=== PATIENT | female | born 1945 | race Caucasian/White ===

== ENCOUNTER 2016-08-30 07:29 | Day surgery (SDC) | payer MEDICARE ==
[2016-08-30] MEDS ORDERED: Lactated Ringers 1,000 ML IV SCH (08:15)
[2016-08-30] MEDS ORDERED: Midazolam 1 MG/ML 2 ML SDV ONE (08:49)
[2016-08-30] MEDS ORDERED: fentaNYL 100 MCG/2 ML SDV ONE (08:49)
[2016-08-30] MEDS ORDERED: Propofol 200 MG/20 ML SDV ONE (08:49)
[2016-08-30 10:16] VITALS: BP 106/65
--- NOTE | 2016-08-31 10:28 | OR ---
DATE OF PROCEDURE: 08/30/2016 PREOPERATIVE DIAGNOSIS: History of colon polyps. POSTOPERATIVE DIAGNOSES: Diverticulosis, history of colon polyps. PROCEDURE PERFORMED: Colonoscopy to the cecum. ANESTHESIA: IV anesthesia with monitored anesthesia care. INDICATIONS: This 71-year-old white female is referred for a colonoscopy because of a history of colon polyps. She says her last colonoscopic exam was done in [place], [place] in 2012. I counseled her for a colonoscopy with possible biopsy and/or polypectomy including risks and alternatives, and she gave her informed consent to proceed. DESCRIPTION OF PROCEDURE: The patient was placed in the left lateral decubitus position. IV anesthesia was administered by the Anesthesia Service. Time-out was held. A rectal exam was performed which was unremarkable. The flexible video Olympus colonoscope was introduced through her anus, up her rectum, and out her colon all way to the cecum. En route, we saw a very few scattered diverticula on the left side. There was no bleeding or inflammation associated with them. Once the cecum was reached, the scope was slowly withdrawn. Examining the mucosa throughout, no additional mucosal abnormalities were noted. The scope was retroflexed in the rectum with the distal rectum appearing unremarkable. The scope was straightened and removed. She tolerated the procedure well. Marco Antonio Beauchamp MD /[id number] MTDDerian
== END 2016-08-30 10:34 | disposition home or self-care (01) ==
LOC: JP.SDS 07:29
PROVIDERS: ATTEND Surgery
DX: Z12.11 Encounter for screening for malignant neoplasm of colon (principal); Z86.010 Personal history of colon polyps; K57.30 Diverticulosis of large intestine without perforation or abscess without bleeding; G43.909 Migraine, unspecified, not intractable, without status migrainosus; Z79.899 Other long term (current) drug therapy
CPT/HCPCS: 45378; J2250; J2704; J3010; J7120

== ENCOUNTER 2017-09-07 04:22 | Emergency (ER) | payer MEDICARE ==
--- NOTE | 2017-09-07 05:02 | EDM.PDOC ---
ED HPI GENERAL MEDICAL PROBLEM - General Chief Complaint: Chest Pain Stated Complaint: CHEST PAIN Time Seen by Provider: 09/07/17 04:45 Source of Information: Reports: Patient, Old Records, RN History Limitations: Reports: No Limitations - History of Present Illness INITIAL COMMENTS - FREE TEXT/NARRATIVE: 72 yo female presents with L anterior chest pain worse with breathing or coughing. She has not had SOB, fever, or cough. Thinks she has had a little L calf muscle soreness and L low back soreness lately also. She and her have been dealing with a dog that has cancer and is dying. They have traveled to the [place] with this dog for chemo tx's. She is a never smoker. She has no hx of any lung issues. Onset Date: 09/05/17 Duration: Day(s):, Constant Location: Reports: Chest (just below the L breast.) Quality: Reports: Dull Severity: Mild Improves with: Reports: Rest Worsens with: Reports: Breathing (or coughing) Context: Reports: Other (unknown, denies injury to area. ) Associated Symptoms: Reports: No Other Symptoms. 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: Neurological History: Reports: Migraines - Infectious Disease History Infectious Disease History: Reports: Chicken Pox, Measles, Mumps, Rubella - Past Surgical History HEENT Surgical History: Reports: Detached Retina, LASIK, Tonsillectomy GI Surgical History: Reports: Colonoscopy, Other (See Below) Neurological Surgical History: Reports: None Social & Family History - Family History Oncologic: Reports: Colon, Lymphoma - Tobacco Use Smoking Status *Q: Never Smoker Second Hand Smoke Exposure: No - Caffeine Use Caffeine Use: Reports: Coffee - Alcohol Use Days Per Week of Alcohol Use: 7 Number of Drinks Per Day: 2 Total Drinks Per Week: 14 - Recreational Drug Use Recreational Drug Use: No ED ROS GENERAL - Review of Systems Review Of Systems: See Below Constitutional: Reports: No Symptoms HEENT: Reports: No Symptoms Respiratory: Reports: Pleuritic Chest Pain. Denies: Shortness of Breath, Wheezing, Cough, Sputum, Hemoptysis Cardiovascular: Reports: Chest Pain (under L breast). Denies: Claudication, Dyspnea on Exertion, Orthopnea, Palpitations GI/Abdominal: Reports: No Symptoms : Reports: No Symptoms Musculoskeletal: Reports: No Symptoms Skin: Reports: No Symptoms Neurological: Reports: No Symptoms ED EXAM, GENERAL - Physical Exam Exam: See Below Exam Limited By: No Limitations General Appearance: Alert, WD/WN, No Apparent Distress Eye Exam: Bilateral Eye: Normal Inspection Ears: Normal External Exam, Normal Canal, Hearing Grossly Normal Ear Exam: Bilateral Ear: Auricle Normal, Canal Normal Nose: Normal Inspection, Normal Mucosa, No Blood Throat/Mouth: Normal Inspection, Normal Lips, Normal Teeth, Normal Oropharynx, Normal Voice, No Airway Compromise Head: Atraumatic, Normocephalic Neck: Normal Inspection, Supple, Non-Tender Respiratory/Chest: No Respiratory Distress, Lungs Clear, Normal Breath Sounds, No Accessory Muscle Use Cardiovascular: Regular Rate, Rhythm, No Edema GI/Abdominal: Normal Bowel Sounds, Soft, Non-Tender, No Distention Back Exam: Normal Inspection. No: CVA Tenderness (R), CVA Tenderness (L) Extremities: Normal Inspection, Normal Range of Motion, Non-Tender, No Pedal Edema Neurological: Alert, Oriented, CN II-XII Intact, Normal Cognition, No Motor/ Sensory Deficits Psychiatric: Normal Affect, Normal Mood Skin Exam: Warm, Dry, Intact, Normal Color, No Rash Course - Vital Signs Text/Narrative:: discussed with Dr. Mcdonald @ [facility] Last Recorded V/S: Last Vital Signs Temp 35.8 C 09/07/17 04:28 Pulse 71 09/07/17 05:45 Resp 12 09/07/17 05:45 BP 116/63 09/07/17 05:45 Pulse Ox 95 09/07/17 05:45 - Orders/Labs/Meds Orders: Active Orders 24 hr Category Date Time Status Ang Chest [CT] Stat Exams 09/07/17 05:47 Taken Chest 2V [CR] Stat Exams 09/07/17 04:55 Taken Lactated Ringers [Ringers, Lactated] 1,000 ml Med 09/07/17 06:00 Active IV ASDIRECTED Medication Orders Lactated Ringer's (Ringers, Lactated) 1,000 mls @ 500 mls/hr IV ASDIRECTED LIDA Last Admin: 09/07/17 06:28 Dose: 500 mls/hr Labs: Laboratory Tests 09/07/17 09/07/17 09/07/17 Range/Units 04:55 05:05 05:05 WBC 4.8 (4.5-11.0) K/uL RBC 4.27 (3.30-5.50) M/uL Hgb 13.0 (12.0-15.0) g/dL Hct 40.2 (36.0-48.0) % MCV 94 (80-98) fL MCH 30 (27-31) pg MCHC 32 (32-36) % Plt Count 173 (150-400) K/uL D-Dimer, Quantitative 1370 H (0.0-400.0) ng/mL Sodium 146 (140-148) mmol/L Potassium 4.1 (3.6-5.2) mmol/L Chloride 108 (100-108) mmol/L Carbon Dioxide 27 (21-32) mmol/L Anion Gap 11.0 (5.0-14.0) mmol/L BUN 11 (7-18) mg/dL Creatinine 0.7 (0.6-1.0) mg/dL Est Cr Clr Drug Dosing 71.68 mL/min Estimated GFR (MDRD) > 60 (>60) Glucose 117 H (74-106) mg/dL Calcium 8.5 (8.5-10.1) mg/dL Troponin I (0.000-0.056) ng/mL 09/07/17 Range/Units 05:10 WBC (4.5-11.0) K/uL RBC (3.30-5.50) M/uL Hgb (12.0-15.0) g/dL Hct (36.0-48.0) % MCV (80-98) fL MCH (27-31) pg MCHC (32-36) % Plt Count (150-400) K/uL D-Dimer, Quantitative (0.0-400.0) ng/mL Sodium (140-148) mmol/L Potassium (3.6-5.2) mmol/L Chloride (100-108) mmol/L Carbon Dioxide (21-32) mmol/L Anion Gap (5.0-14.0) mmol/L BUN (7-18) mg/dL Creatinine (0.6-1.0) mg/dL Est Cr Clr Drug Dosing mL/min Estimated GFR (MDRD) (>60) Glucose (74-106) mg/dL Calcium (8.5-10.1) mg/dL Troponin I < 0.017 (0.000-0.056) ng/mL Meds: Medications Generic Name Dose Route Start Last Admin Trade Name Freq PRN Reason Stop Dose Admin Lactated Ringer's 1,000 mls @ 500 mls/hr 09/07/17 06:00 09/07/17 06:28 Ringers, Lactated IV 500 mls/hr ASDIRECTED LIDA Administration Discontinued Medications Generic Name Dose Route Start Last Admin Trade Name Freq PRN Reason Stop Dose Admin Enoxaparin Sodium 60 mg 09/07/17 06:54 Lovenox SUBCUT 09/07/17 06:55 ONETIME ONE Sodium Chloride 100 mls @ 4 mls/sec 09/07/17 06:08 09/07/17 06:18 Normal Saline IV 09/07/17 06:09 4 mls/sec ASDIRECTED STA Administration Iopamidol 100 ml 09/07/17 06:07 09/07/17 06:18 Isovue-370 (76%) IV 09/07/17 06:08 100 ml . DIRECTED STA Administration - Radiology Interpretation Free Text/Narrative:: CXR-small pleural effusion L CT PE protocol- Departure - Departure Time of Disposition: 07:30 Disposition: Home, Self-Care 01 Condition: Fair Clinical Impression: Pulmonary embolism Qualifiers: Pulmonary embolism type: other Chronicity: acute Acute cor pulmonale presence: without acute cor pulmonale Qualified Code(s): I26.99 - Other pulmonary embolism without acute cor pulmonale - Discharge Information Referrals: PCP,None [Primary Care Provider] - Forms: ED Department Discharge - My Orders Last 24 Hours: My Active Orders 09/07/17 04:55 Chest 2V [CR] Stat 09/07/17 05:47 Ang Chest [CT] Stat 09/07/17 06:00 Lactated Ringers [Ringers, Lactated] 1,000 ml IV ASDIRECTED - Assessment/Plan Last 24 Hours: My Active Orders 09/07/17 04:55 Chest 2V [CR] Stat 09/07/17 05:47 Ang Chest [CT] Stat 09/07/17 06:00 Lactated Ringers [Ringers, Lactated] 1,000 ml IV ASDIRECTED
[2017-09-07 05:46] VITALS: BP 116/63
[2017-09-07] MEDS ORDERED: Lactated Ringers 1,000 ML IV SCH (06:00)
[2017-09-07] MEDS ORDERED: Iopamidol 755 Mg/ML 100 ML Bottle IV STA (06:07)
[2017-09-07] MEDS ORDERED: Sodium Chloride 0.9% 100 ML IV STA (06:08)
[2017-09-07] MEDS ORDERED: Enoxaparin 60 MG/0.6 ML Syringe SUBCUT ONE (06:54)
[2017-09-07] MEDS ORDERED: Enoxaparin 30 MG/0.3 ML Syringe SUBCUT ONE (07:14)
--- NOTE | 2017-09-07 08:54 | CR ---
Chest 2V HISTORY: Chest pain COMPARISON: None FINDINGS: Small left-sided pleural effusion with some adjacent atelectasis or infiltrate. The mid and upper lung zones are clear. Cardiac size is normal. No focal infiltrates. Impression: Left-sided pleural effusion with left lung base atelectasis or infiltrate.
== END 2017-09-07 07:42 | disposition home or self-care (01) ==
LOC: JP.ED 04:22
DX: I26.99 Other pulmonary embolism without acute cor pulmonale (principal); Z79.899 Other long term (current) drug therapy
CPT/HCPCS: 36415; 71046; 71275; 80048; 84484; 85027; 85379; 96360; 96361; 96372; 99284; 99285; J1650; J7030; J7120; Q9967

== ENCOUNTER 2019-10-28 14:30 | Emergency (ER) | payer MEDICARE ==
[2019-10-28 14:42] VITALS: BP 136/76; PULSE 74
--- NOTE | 2019-10-28 15:03 | EDM.PDOC ---
ED HPI GENERAL MEDICAL PROBLEM - General Chief Complaint: Lower Extremity Injury/Pain Stated Complaint: LEFT CALF PAIN, WORRIED ABOUT EMBOLISM Time Seen by Provider: 10/28/19 15:03 Source of Information: Reports: Patient History Limitations: Reports: No Limitations - History of Present Illness INITIAL COMMENTS - FREE TEXT/NARRATIVE: pt arrived concerned that she could have a clot in the left leg. Pt had PE and is on xarelyto 10 mg. pt had a bad brant horse and after that it has been tender and the left leg is larger than the rt. Onset: Gradual Duration: Hour(s): Location: Reports: Lower Extremity, Left Associated Symptoms: Reports: No Other Symptoms Left Lower Posterior Leg Pain Score (Numeric/FACES): 2 - Related Data Allergies Allergy/AdvReac Type Severity Reaction Status Date / Time No Known Allergies Allergy Verified 09/07/17 04:33 Home Meds: Home Meds SUMAtriptan succinate [Imitrex] 100 mg PO ASDIRECTED 08/26/16 [History] Cyanocobalamin (Vitamin B-12) [B-12] 1,000 mcg PO DAILY 09/07/17 [History] Cholecalciferol (Vitamin D3) [Vitamin D] 5,000 unit PO DAILY 10/28/19 [History] Levothyroxine 25 mcg PO ACBREAKFAST 10/28/19 [History] Rivaroxaban [Xarelto] 10 mg PO DAILY 10/28/19 [History] Past Medical History Gastrointestinal History: Reports: Colon Polyp, Hemorrhoids 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: Neurological History: Reports: Migraines - Infectious Disease History Infectious Disease History: Reports: Chicken Pox, Measles, Mumps - Past Surgical History HEENT Surgical History: Reports: Detached Retina, LASIK, Tonsillectomy GI Surgical History: Reports: Colonoscopy, Other (See Below) Neurological Surgical History: Reports: None Social & Family History - Family History Oncologic: Reports: Colon, Lymphoma - Tobacco Use Smoking Status *Q: Never Smoker - Caffeine Use Caffeine Use: Reports: Coffee - Recreational Drug Use Recreational Drug Use: No Review of Systems - Review of Systems Review Of Systems: See Below Constitutional: Reports: No Symptoms Eyes: Reports: No Symptoms Ears: Reports: No Symptoms Nose: Reports: No Symptoms Mouth/Throat: Reports: No Symptoms Respiratory: Reports: No Symptoms Cardiovascular: Reports: No Symptoms GI/Abdominal: Reports: No Symptoms Genitourinary: Reports: No Symptoms Musculoskeletal: Reports: Other (pain in the left calf of the leg. ) Skin: Reports: No Symptoms ED EXAM, GENERAL - Physical Exam Exam: See Below Free Text/Narrative:: pt has a history of a previos PE, She is on xarelto. She has had pain in her left leg for the past 2 days. This was preceded by a bad muscle spasm. Exam Limited By: No Limitations General Appearance: Alert, Anxious Ears: Normal External Exam Nose: Normal Inspection Head: Atraumatic Neck: Normal Inspection Respiratory/Chest: No Respiratory Distress Extremities: Other ( The left leg is slightly larger than the rt, She has good pulse present. She is tender in the calf. ) Course - Vital Signs Last Recorded V/S: Last Vital Signs Temp 36.1 C 10/28/19 14:44 Pulse 74 10/28/19 14:44 Resp 18 10/28/19 14:44 BP 136/76 10/28/19 14:44 Pulse Ox 99 10/28/19 14:44 - Re-Assessments/Exams Free Text/Narrative Re-Assessment/Exam: 10/28/19 16:21 Us of the leg was done which is normal. Departure - Departure Time of Disposition: 16:18 Disposition: Home, Self-Care 01 Clinical Impression: Left leg pain - Discharge Information Instructions: Musculoskeletal Pain Referrals: PCP,None [Primary Care Provider] - Forms: ED Department Discharge Care Plan Goals: moist warm packs to left leg, see regular provider if ongoing problems. tylenol for pain. Sepsis Event Note - Evaluation Sepsis Screening Result: No Definite Risk - Focused Exam Date Exam was Performed: 10/30/19 Time Exam was Performed: 07:13
--- NOTE | 2019-10-29 10:28 | US ---
VL Duplex Lwr Ext Veins Ltd Lt INDICATION: pain in left leg. FINDINGS: Ultrasound examination of the lower extremity using Doppler and compressive technique demonstrates that the common femoral, femoral, and popliteal veins are patent, and compressible throughout The calf veins were segmentally visualized and are negative where seen. IMPRESSION: Negative for deep venous thrombosis.
== END 2019-10-28 16:47 | disposition home or self-care (01) ==
LOC: JP.ED 14:30
DX: M79.605 Pain in left leg (principal); Z79.01 Long term (current) use of anticoagulants
CPT/HCPCS: 93971-26-LT; 93971-LT; 99282; 99283-25